=== PATIENT | female | born 1985 | race Caucasian/White ===

== ENCOUNTER 2018-01-02 16:08 | Emergency (ER) | payer MEDICAID ==
--- NOTE | 2018-01-02 16:28 | ED Physician Chart ---
ED Chief Complaint/HPI - Patient Information Date Seen:: 01/02/18 Time Seen:: 16:17 Chief Complaint:: Vaginal bleeding History of Present Illness:: 32 yo female, with 1 miscarriage, had last menstrual period on 11/10/17. She had a positive home test 1 week ago. 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 She had bilateral inguinal pain for 2 days and noticed vaginal spotting twice this morning. Due to previous miscarriage and her blood type O, Rh (-), the patient became concerned about miscarriage this time. 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 Musculoskeletal: No bone or joint pain Psychiatric: No prior psych history Neurological: No focal symptoms ED Past Medical History - Past Medical History Past Medical History: No significant medical hx Social History: Non Smoker, No Alcohol, No Drug Use Surgical History: (x 1), other (septal plasty) ED Physical Exam - Physical Examination General/Constitutional: Awake, Alert Head: Atraumatic Eyes: PERRL Skin: No skin lesions ENMT: Nasal exam nl Neck: No nuchal rigidity Respiratory: No Wheeze/Rhonchi/Rales Cardio Vascular: RRR, No murmur, gallop, rubs, NL S1 S2 Other GI comments:: bilateral lower abdomen tenderness Extremities: normal strength in all extremities Neuro/Psych: No focal deficits ED Labs/Radiology/EKG Results - Lab Results Results: Blood type: A negative - Radiology Results Results: OB u/s showed single intrauterine gestation 6w5d, possible subchorionic hemorrhage ED Assessment - Assessment General Assessment: Subchorionic hemorrhage Assessment/Comments:: CBC, CMP, PT/PTT blood type ED Septic Shock - . Is Septic Shock (SBP<90, OR Lactate>4 mmol\L) present?: No ED Reassessment (Disposition) - Reassessment Reassessment Condition:: Improved - Patient Disposition Discharge/Transfer:: Home
[2018-01-02 17:05] LABS: % BASOPHILS 0.4 % (0.0-2.0); % EOSINOPHILS 3.4 % (0.0-5.0); % LYMPHOCYTES 21.6 % (20.0-50.0); % MONOCYTES 5.5 % (2.0-10.0); % NEUTROPHILS 69.1 % (40.0-80.0); EOSINOPHILE ABSOLUTE 0.4 Th/cmm (0.1-0.4); HEMATOCRIT 37.3 % (41.0-60); HEMOGLOBIN 12.6 gm/dL (12-16); LYMPHOCYTE ABSOLUTE 2.3 Th/cmm (1.5-3.0); MEAN CELL VOLUME 84.2 fl (81-100); MEAN CORPUSCULAR HEMOGLOBIN 28.5 pg (27.0-31.0); MEAN CORPUSCULAR HGB CONC 33.8 pg (28.0-36.0); MEAN PLATELET VOLUME 8.5 fl; MONOCYTE ABSOLUTE 0.6 Th/cmm (0.3-1.0); NEUTROPHILE ABSOLUTE 7.3 Th/cmm (1.8-8.0); PLATELET COUNT 207 Th/cmm (150-400); RED BLOOD COUNT 4.42 Mil/cmm (3.80-5.10); RED CELL DISTRIBUTION WIDTH 12.6 % (11.5-20.0); WHITE BLOOD COUNT 10.6 Th/cmm (4.8-10.8)
[2018-01-02] MEDS ORDERED: RHO D IMMUNE GLOBULIN IM ONE (17:23)
[2018-01-02 17:30] LABS: ALB/GLOB RATIO 1.4 (1.0-1.8); ALBUMIN 3.8 gm/dL (3.7-5.3); ALKALINE PHOSPHATASE 62 U/L (34-104); ANION GAP 6.5 (7.0-16.0); BILIRUBIN,TOTAL 0.2 mg/dL (0.3-1.0); BUN - UREA NITROGEN 12 mg/dL (7-25); CALCIUM SERUM 9.6 mg/dL (8.6-10.3); CARBON DIOXIDE 27.7 mEq/L (21.0-31.0); CHLORIDE 104 mEq/L (98-107); CREATININE - SERUM 0.6 mg/dL (0.6-1.2); GFR AFRICAN-AMERICAN > 60.0 ml/min (>90); GFR NON AFRICAN-AMERICAN > 60.0 ml/min; GLUCOSE 92 mg/dL (70-105); POTASSIUM SERUM 4.2 mEq/L (3.5-5.1); SGOT 16 U/L (13-39); SGPT/ALT 16 U/L (7-52); SODIUM SERUM 134 mEq/L (136-145); TOTAL PROTEIN,SERUM 6.5 gm/dL (6.0-8.3)
[2018-01-02] MEDS ORDERED: Sodium Chloride 0.9% 1,000 ML IV ONE (18:14)
[2018-01-02 18:16] LABS: INR 1.01 (0.5-1.4); PROTHROMBIN TIME (TEST) 10.5 SECONDS (9.5-11.5)
[2018-01-02 18:40] LABS: HCG QUANT 29466 mIU/mL (0-0)
[2018-01-02 19:02] LABS: URINE MICROSCOPIC INDICATED? YES; URINE SOURCE RANDOM
[2018-01-02 19:03] LABS: URINE BILIRUBIN NEGATIVE (NEGATIVE); URINE BLOOD TRACE (NEGATIVE); URINE GLUCOSE (UA) NEGATIVE (NEGATIVE); URINE KETONE NEGATIVE (NEGATIVE); URINE LEUKOCYTE ESTERASE NEGATIVE (NEGATIVE); URINE NITRATE NEGATIVE (NEGATIVE); URINE PH 6.5 (4.6 - 8.0); URINE PROTEIN NEGATIVE (NEGATIVE); URINE UROBILINOGEN 0.2 E.U./dL (0.2 - 1.0)
[2018-01-02 19:10] LABS: URINE CLARITY CLEAR (CLEAR); URINE COLOR YELLOW
[2018-01-02 19:11] LABS: URINE BACTERIA OCCASIONAL /hpf (NONE SEEN); URINE EPITHELIAL CELLS RARE /lpf (FEW); URINE RBC 0-2 /hpf (0-5); URINE WBC NONE SEEN /hpf (0-5)
--- NOTE | 2018-01-03 08:34 | Diagnostic Imaging Report ---
OB ultrasound HISTORY: Abnormal bleeding Transvaginal sonographic technique and transabdominal sonographic technique utilized. There are findings consistent with a single intrauterine gestation with a well-defined sac in a rind of decidual reaction. A pole and yolk sac are seen. Definitive cardiac activity cannot be measured. As such, viability cannot be confirmed. The crown-rump length equals 0.78 cm. This is consistent with a sonographic age of 6 weeks 5 days +/- 1 week. There is a small hypoechoic focus adjacent to the sac. The region of subchorionic hemorrhage cannot be excluded. A 2.3 cm sonolucent lesion is seen in the left adnexa lower area consistent with a corpus lutein cyst. IMPRESSION: 1. Single intrauterine gestation with an approximate sonographic age of 6 weeks 5 days +/- 1 week. As definite cardiac activity could not be measured at this time, viability cannot be confirmed. A follow-up ultrasound exam in one week and/or correlation with hCG values advised. 2. Small focus that may be related to a region of subchorionic hemorrhage. Again, follow-up is recommended 3. 2.3 cm left adnexal cyst most likely related to a corpus luteum.
== END 2018-01-02 20:10 | disposition home or self-care (01) ==
LOC: ER 16:08
DX: O46.91 Antepartum hemorrhage, unspecified, first trimester (principal); Z3A.01 Less than 8 weeks gestation of pregnancy
CPT/HCPCS: 99285; 76801; 86900; 86850; 36415; 86901; 84702; 85025; 85610; 81001; 80053; J2788; J7030

== ENCOUNTER 2018-02-11 18:37 | Emergency (ER) | payer MEDICAID ==
--- NOTE | 2018-02-11 19:23 | ED Physician Chart ---
ED Chief Complaint/HPI - Patient Information Date Seen:: 02/11/18 Time Seen:: 19:05 Chief Complaint:: right hemibuttocks and right groin pain History of Present Illness:: About 30 minutes ago patient slipped on water in a store falling on her right hemibuttocks. She complains of pain of her right him a buttocks and her right groin and right lower abdomen. Patient denies vaginal bleeding. Patient is 3 months . She is 5 para 3 AB 1. Allergies:: Allergies Allergy/AdvReac Type Severity Reaction Status Date / Time Penicillins Allergy Verified 01/02/18 16:19 Vitals:: Vital Signs - 8 hr 02/11/18 18:54 Temp 99 F HR 87 RR 16 BP 115/67 O2 Sat % 99 Historian:: Patient Review:: Nurse's Note Reviewed ED Review of Systems - Review of Systems General/Constitutional: No fever, No chills Skin: No skin lesions Head: No headache Eyes: No loss of vision ENT: No earache Neck: No neck pain, No swelling Cardio Vascular: No chest pain, No palpitations Pulmonary: No SOB GI: No nausea, No vomiting, No diarrhea G/U: No dysuria Musculoskeletal: Bone or joint pain, Muscle pain Endocrine: No polyuria Psychiatric: No prior psych history Hematopoietic: No bruising Allergic/Immuno: No urticaria Neurological: No syncope ED Past Medical History - Past Medical History Past Medical History: No significant medical hx Family History: None Social History: Non Smoker, No Alcohol Surgical History: None Psychiatricy History: None Medication: Reviewed Family Medical History - Family Member Mother Hx Family Cancer: No Hx Family Congestive Heart Failure: No Hx Family Hypertension: No Hx Family Stroke: No Hx Family Diabetes: No Hx Family Seizures: No Hx Family Dementia: No Hx Family AIDS: No Hx Family COPD: No Hx Family Hepatitis: No Hx Family Psychiatric Problems: No ED Physical Exam - Physical Examination General/Constitutional: Awake Other Gen/Cons comments:: Crying secondary to pain Head: Atraumatic Eyes: Lids, conjuctiva normal, PERRL Skin: Nl inspection, No rash, No skin lesions, No ecchymosis ENMT: External ears, nose nl, Lips, teeth, gums nl Neck: No nuchal rigidity Respiratory: Nl effort/Exclusion, Clear to Auscultation, No Wheeze/Rhonchi/Rales Cardio Vascular: RRR, No murmur, gallop, rubs GI: No organomegaly, No hernia, Normal BS's Other GI comments:: Right lower quadrant and right groin tenderness : No CVA tenderness Extremities: No tenderness or effusion Neuro/Psych: No focal deficits Misc: Normal back Other Misc comments:: Right hemorrhoid buttocks tenderness ED Labs/Radiology/EKG Results - Lab Results Results: Laboratory Results - last 24 hr 02/11/18 19:15 Urine Source MIDSTREAM Urine Color YELLOW Urine Clarity SLIGHTLY HAZY Urine pH 6.5 Ur Specific Ferdinand 1.020 Urine Protein NEGATIVE Urine Glucose (UA) NEGATIVE Urine Ketones NEGATIVE Urine Blood TRACE Urine Nitrate NEGATIVE Urine Bilirubin NEGATIVE Urine Urobilinogen 0.2 Ur Leukocyte Esterase NEGATIVE Urine RBC 2-5 Urine WBC 0-2 Ur Epithelial Cells OCCASIONAL Amorphous Sediment FEW URATES Urine Bacteria NONE SEEN - Radiology Results Results: Pelvic ultrasound showed a normal 12 week intrauterine ED Assessment - Assessment General Assessment: Patient felt better at 2044 ED Septic Shock - . Is Septic Shock (SBP<90, OR Lactate>4 mmol\L) present?: No - <6hrs of presentation: Vital Signs: Vital Signs - 8 hr 02/11/18 18:54 Temp 99 F HR 87 RR 16 BP 115/67 O2 Sat % 99 ED Reassessment (Disposition) - Reassessment Reassessment Condition:: Improved - Diagnosis Diagnosis:: 12 week intrauterine ; contusion right hemibuttocks; contusion right lower quadrant abdomen - Aftercare/Follow up Instructions Aftercare/Follow-Up Instructions:: Refer to Discharge Instructions - Patient Disposition Discharge/Transfer:: Home Condition at Disposition:: Stable, Improved
[2018-02-11 19:34] LABS: URINE MICROSCOPIC INDICATED? YES; URINE SOURCE MIDSTREAM
[2018-02-11 19:35] LABS: URINE BILIRUBIN NEGATIVE (NEGATIVE); URINE BLOOD TRACE (NEGATIVE); URINE GLUCOSE (UA) NEGATIVE (NEGATIVE); URINE KETONE NEGATIVE (NEGATIVE); URINE LEUKOCYTE ESTERASE NEGATIVE (NEGATIVE); URINE NITRATE NEGATIVE (NEGATIVE); URINE PH 6.5 (4.6 - 8.0); URINE PROTEIN NEGATIVE (NEGATIVE); URINE UROBILINOGEN 0.2 E.U./dL (0.2 - 1.0)
[2018-02-11 19:47] LABS: URINE BACTERIA NONE SEEN /hpf (NONE SEEN); URINE CLARITY SLIGHTLY HAZY (CLEAR); URINE COLOR YELLOW; URINE EPITHELIAL CELLS OCCASIONAL /lpf (FEW); URINE WBC 0-2 /hpf (0-5)
[2018-02-11 19:48] LABS: URINE AMORPHOUS SEDIMENT FEW URATES (NONE SEEN)
--- NOTE | 2018-02-12 07:44 | Diagnostic Imaging Report ---
OB ultrasound HISTORY: Pain, trauma The exam demonstrates a single intrauterine gestation with a well-defined sac. pole is seen. cardiac motion is noted (152 BPM). The crown-rump length equals 6.1 cm. This is consistent with a sonographic age of 12 weeks 5 days +/- 1 week. No other abnormality seen within the pelvis. IMPRESSION: 1. Single intrauterine gestation with sonographic age of 12 weeks 5 days +/- 1 week
== END 2018-02-11 21:00 | disposition home or self-care (01) ==
LOC: ER 18:37
DX: O9A.211 Injury, poisoning and certain other consequences of external causes complicating pregnancy, first trimester (principal); S30.0XXA Contusion of lower back and pelvis, initial encounter; S30.1XXA Contusion of abdominal wall, initial encounter; Z88.0 Allergy status to penicillin; Z3A.12 12 weeks gestation of pregnancy; W19.XXXA Unspecified fall, initial encounter; Y93.89 Activity, other specified; Y92.89 Other specified places as the place of occurrence of the external cause; Y99.8 Other external cause status
CPT/HCPCS: 76801-TC; 81001-TC; Z7610